=== PATIENT | male | born 1955 | race Caucasian/White ===

== ENCOUNTER 2018-09-05 05:57 | Day surgery (SDC) | payer MEDICARE, MEDICAID ==
[~2018-09-05] VITALS: Ht 182.9 cm; Wt 141.8 kg
[~2018-09-05 05:57] MED LIST: DSS100 PO; FERR-89 PO; PANT40TA25 PO
[2018-09-05] MEDS ORDERED: LIDOCAINE 2% 11 ML JELLY TP ONE (05:58)
[2018-09-05] MEDS ORDERED: LIDOCAINE 4% 50 ML SOLUTION TP ONE (05:58)
[2018-09-05] MEDS ORDERED: BENZOCAINE 20% 50 MCG/SPRAY 57 GM TP ONE (05:58)
[2018-09-05] MEDS ORDERED: ALBUTEROL SULFATE 2.5 MG/0.5 ML NEB SOLUTION NEB ONE (05:58)
[2018-09-05] MEDS ORDERED: SODIUM CHLORIDE 0.9% 1,000 ML IV ONE ×2 (06:30→07:06)
[2018-09-05] MEDS ORDERED: MIDAZOLAM HCL 2 MG/2 ML VIAL ONE (08:05)
[2018-09-05] MEDS ORDERED: FentaNYL CITRATE-PF 100 MCG/2 ML VIAL ONE (08:05)
[2018-09-05] MEDS ORDERED: MethylPREDNISolone SOD SUCC 125 MG/2 ML VIAL IVP ONE (08:45)
[2018-09-05] MEDS ORDERED: OXYGEN THERAPY IH SCH (20:00)
== END 2018-09-05 10:20 | disposition home or self-care (01) ==
LOC: SURGERY 05:57
PROVIDERS: ATTEND Internal Medicine Critical Care Medicine
DX: J38.4 Edema of larynx (principal); B37.0 Candidal stomatitis; J39.8 Other specified diseases of upper respiratory tract; G47.33 Obstructive sleep apnea (adult) (pediatric)
CPT/HCPCS: 31623; 31624; 71045; 87015; 87070; 87101; 87205; 87206; 87220; 88108; 88312; J2250; J2930; J3010; J7030